=== PATIENT | male | born 1965 ===

== ENCOUNTER 2016-12-26 19:48 | Emergency (ER) | payer OTHER ==
[2016-12-26] MEDS ORDERED: LISINOPRIL5 MG PO (20:06)
[2016-12-26] MEDS ORDERED: NORVASC PO (20:06)
[2016-12-26] MEDS ORDERED: PRILOSEC20 MG PO (20:07)
[2016-12-26] MEDS ORDERED: VALPROIC ACD250 M1 PO (20:07)
[2016-12-26] MEDS ORDERED: CLARITIN10 M1 PO (20:08)
[2016-12-26] MEDS ORDERED: LOPRESSOR 550 MG/TAB PO (20:09)
[2016-12-26] MEDS ORDERED: ADULT ASPIRIN E81 MG PO (20:10)
[2016-12-26] MEDS ORDERED: TRILAFON PO (20:12)
[2016-12-26 20:44] VITALS: BP 155/96
== END 2016-12-26 20:44 | disposition designated cancer center or children's hospital (05) | DRG 159 ==
LOC: ED 19:48
PROC: 0CQ0XZZ Repair Upper Lip, External Approach (ICD-10-PCS; principal; 2016-12-26)
DX: S01.511A Laceration without foreign body of lip, initial encounter (principal); Y04.0XXA Assault by unarmed brawl or fight, initial encounter; Y92.149 Unspecified place in prison as the place of occurrence of the external cause